=== PATIENT | female | born 1995 | race Caucasian/White ===

== ENCOUNTER 2016-11-30 18:05 | Emergency (ER) | payer SELFPAY ==
[2016-11-30] MEDS ORDERED: ONDANSETRON 4 MG TAB.RAPDIS PO ONE (19:00)
[2016-11-30] MEDS ORDERED: OXYCODONE-ACETAMINOPHEN 5-325 MG TABLET PO ONE (19:00)
[2016-11-30 19:46] LABS: ABSOLUTE LYMPHOCYTES (AUTO) 1.1 10^3/uL (0.5-4.7); ABSOLUTE MONOCYTES (AUTO) 0.5 10^3/uL (0.1-1.4); BASOPHILS % (AUTO) 0.2 % (0-2); EOSINOPHILS % (AUTO) 0.4 % (0-6); HEMOGLOBIN 13.3 g/dL (12.0-15.5); HGB HCT DIFFERENCE 0.9; LYMPHOCYTES % (AUTO) 10.2 % (13-45); MEAN CORPUSCULAR HEMOGLOBIN 30.1 pg (27.0-33.4); MEAN CORPUSCULAR HGB CONC 34.1 g/dL (32.0-36.0); MEAN CORPUSCULAR VOLUME 88 fl (80-97); RED BLOOD COUNT 4.42 10^6/uL (3.72-5.28); RED CELL DISTRIBUTION WIDTH 13.2 % (11.5-14.0); SEGMENTED NEUTROPHILS % (AUTO) 84.2 % (42-78); WHITE BLOOD COUNT 10.7 10^3/uL (4.0-10.5)
[2016-11-30 19:58] LABS: ALANINE AMINOTRANSFERASE 52 U/L (9-52); ALBUMIN 4.8 g/dL (3.5-5.0); ALKALINE PHOSPHATASE 85 U/L (38-126); ANION GAP 15 (5-19); ASPARTATE AMINO TRANSFERASE 27 U/L (14-36); BILIRUBIN,DIRECT 0.3 mg/dL (0.0-0.4); BILIRUBIN,TOTAL 0.6 mg/dL (0.2-1.3); BLOOD UREA NITROGEN 14 mg/dL (7-20); CALCIUM 9.5 mg/dL (8.4-10.2); CARBON DIOXIDE 22 mmol/L (22-30); CHLORIDE 103 mmol/L (98-107); CREATININE RESULT 0.59 mg/dL (0.52-1.25); GLUCOSE 81 mg/dL (75-110); LIPASE 46.3 U/L (23-300); POTASSIUM 4.2 mmol/L (3.6-5.0); SODIUM 139.5 mmol/L (137-145); TOTAL PROTEIN 8.1 g/dL (6.3-8.2)
--- NOTE | 2016-11-30 20:09 | RADIOLOGY REPORT (SQ) ---
EXAM DESCRIPTION: U/S ABDOMEN LTD W/DOPPLER COMPLETED DATE/TIME: 11/30/2016 7:58 pm REASON FOR STUDY: RUQ pain COMPARISON: None. TECHNIQUE: Dynamic and static grayscale images acquired of the abdomen and recorded on PACS. Additio nal selected color Doppler and spectral images recorded. LIMITATIONS: None. FINDINGS: PANCREAS: Not visualized. LIVER: No focal masses fatty liver. LIVER VASCULATURE: Normal directional flow of the main portal vein and hepatic veins. GALLBLADDER: No stones. Normal wall thickness. No pericholecystic fluid. ULTRASOUND-DETECTED PURI'S SIGN: Negative. INTRAHEPATIC DUCTS AND COMMON DUCT: CBD and intrahepatic ducts normal caliber. No filling defects. INFERIOR VENA CAVA: Normal flow. AORTA: No aneurysm. RIGHT KIDNEY: Normal size. Normal echogenicity. No solid or suspicious masses. No hydronephrosis. No calcifications. Cyst. PERITONEAL AND RIGHT PLEURAL SPACE: No ascites or effusions. OTHER: No other significant findings. IMPRESSION: Fatty liver. No gallstones. TECHNICAL DOCUMENTATION: JOB ID: [id number] [employer]- All Rights Reserved
[2016-11-30 20:28] LABS: APPEARANCE,URINE CLEAR; BILIRUBIN,URINE NEGATIVE (NEGATIVE); GLUCOSE, URINE NEGATIVE (NEGATIVE); KETONES,URINE TRACE mg/dL (NEGATIVE); LEUKOCYTE ESTERASE,URINE NEGATIVE (NEGATIVE); NITRITE,URINE NEGATIVE (NEGATIVE); PROTEIN,URINE NEGATIVE (NEGATIVE); URINE SPECIFIC GRAVITY 1.014; UROBILINOGEN,URINE NEGATIVE mg/dL (<2.0)
--- NOTE | 2016-11-30 20:43 | ER Document Report ---
ED General - General Chief Complaint: Hand Pain Stated Complaint: LEFT HAND PAIN, NAUSEA Time Seen by Provider: 11/30/16 18:14 Notes: Patient is a 21-year-old female presents emergency department complaining of left hand pain as well as nausea and vomiting. Patient's primary concern today is her nausea. Patient states that the past 2 days she has had right upper quadrant pain that was coming on describes a cramping sensation with radiation to her right shoulder. She states this is not associated with food. Patient states that she has had associated nausea and vomiting today and that her abdominal pain has subsided after she threw up only to come back. Patient denies any fever, chills, diarrhea or constipation. Patient's other complaint that brought her to the emergency department for referral for hand surgeon. Patient states that she broke her fifth metacarpal on Saturday and would like a second opinion by a hand surgeon. Otherwise she states that she is taking her pain medication as prescribed. TRAVEL OUTSIDE OF THE [place] IN LAST 30 DAYS: No - Related Data Allergies/Adverse Reactions: No Known Allergies Allergy (Verified 03/21/13 23:33) Home Medications: Current Home Medications Hydrocodone Bit/Acetaminophen [Vicodin 5-500 mg Tablet] 1 tab PO ASDIR PRN 11/30 [History] Ibuprofen [Motrin 800 mg Tablet] 800 mg PO Q8H PRN 11/30/16 [History] Past Medical History - Social History Smoking Status: Never Smoker Frequency of alcohol use: None Drug Abuse: None Family History: Reviewed & Not Pertinent Renal/ Medical History: Denies: Hx Peritoneal Dialysis Surgical Hx: Negative - Immunizations Immunizations up to date: Yes Hx Diphtheria, Pertussis, Tetanus Vaccination: Yes Review of Systems - Review of Systems Constitutional: No symptoms reported Gastrointestinal: See HPI Musculoskeletal: See HPI -: Yes All other systems reviewed and negative Physical Exam - Vital signs Vitals: Temp Pulse Resp BP Pulse Ox 97.5 F 82 18 142/94 H 100 11/30/16 18:09 11/30/16 18:09 11/30/16 18:11/30/16 18:11/30/16 18:09 - Notes Notes: PHYSICAL EXAM GENERAL: Alert, interacts well. NECK: Full range of motion. Supple. Trachea midline. LUNGS: Clear to auscultation bilaterally, no wheezes, rales, or rhonchi. No respiratory distress. HEART: Regular rate and rhythm. No murmurs, gallops, or rubs. ABDOMEN: Soft, nondistended, nontender. Right upper quadrant tenderness positive Peters sign. No guarding, rebound, or rigidity.. Bowel sounds present in all 4 quadrants. EXTREMITIES: Moves all extremities spontaneously left hand in a splint with neurovascular intact. No edema, radial and dorsalis pedis pulses 2/4 bilaterally. No cyanosis. NEUROLOGICAL: Alert and oriented x4. Normal speech. PSYCH: Normal affect, normal mood. SKIN: Warm, dry, normal turgor. No rashes or lesions noted. Course - Re-evaluation Re-evalutation: 11/30/16 21:35 Patient is a 21-year-old female who is hemodynamic stable, no acute distress and afebrile. Labs came back within normal limits and no concerns for leukocytosis, anemia, electrolyte abnormalities, abnormality and function for liver, pancreas or kidneys. Findings on ultrasound showed fatty liver. Discussed results with patient the bedside. Have provided a referral to Dr. Andrews. Patient is stable for discharge. After performing a Medical Screening Examination, I estimate there is LOW risk for ACUTE APPENDICITIS, BOWEL OBSTRUCTION, ACUTE CHOLECYSTITIS, PERFORATED DIVERTICULITIS, INCARCERATED HERNIA, PANCREATITIS, PELVIC INFLAMMATORY DISEASE, PERFORATED ULCER, ECTOPIC , or TUBO-OVARIAN ABSCESS, thus I consider the discharge disposition reasonable. Also, there is no evidence or peritonitis , sepsis, or toxicity. I have reevaluated this patient multiple times and no significant life threatening changes are noted. The patient and I have discussed the diagnosis and risks, and we agree with discharging home with close follow-up with the understanding that symptoms and presentations can change. We also discussed returning to the Emergency Department immediately if new or worsening symptoms occur. We have discussed the symptoms which are most concerning (e.g., bloody stool, fever, changing or worsening pain, vomiting) that necessitate immediate return. - Vital Signs Vital signs: Temp Pulse Resp BP Pulse Ox 98.5 F 70 18 116/69 100 11/30/16 20:53 11/30/16 20:53 11/30/16 20:53 11/30/16 20:53 11/30/16 20:53 - Laboratory Result Diagrams: 11/30/16 19:33 11/30/16 19:33 Laboratory results interpreted by me: 11/30/16 11/30/16 19:33 20:05 WBC 10.7 H Seg Neutrophils % 84.2 H Lymphocytes % 10.2 L Absolute Neutrophils 9.0 H Urine Ketones TRACE H - Diagnostic Test Radiology reviewed: Reports reviewed Discharge - Discharge Clinical Impression: Nausea Closed fracture of 3rd metacarpal Qualifiers: Encounter type: initial encounter Metacarpal location: shaft Fracture alignment : nondisplaced Laterality: left Qualified Code(s): S62.353A - Nondisplaced fracture of shaft of third metacarpal bone, left hand, initial encounter for closed fracture Condition: Good Disposition: HOME, SELF-CARE Instructions: Fractured Metacarpal ([facility]) Additional Instructions: ABDOMINAL PAIN: There are many causes of abdominal pain. Pain can mean a serious problem requiring surgery (such as appendicitis). It can also be an innocent problem that goes away on its own (such as a viral infection). Often, time must pass to determine the cause of pain. The physician does not feel that hospitalization is necessary, at present. Things may change within the next 24 hours. Call the doctor or come back for re- examination if any problems occur, such as: (1) Pain that becomes more severe, steady, or becomes concentrated in one specific area. Also, pain that is more severe with movement or coughing. (2) Vomiting that persists or becomes more frequent. (3) Blood in the vomitus, urine, or bowel movements. Blood in the stool may have a tarry or black appearance. (4) Shaking chills or fever greater than 100 degrees F. (5) The abdomen becomes more distended or swollen. (6) Bowel movements cease. (7) Failure to improve as expected. NORMAL EXAM AND WORKUP: At this time, your examination and workup show no significant abnormality. No significant abnormal physical findings are noted. All laboratory, EKG, and imaging (x-ray, CT scans, ultrasound) studies that were ordered show no significant abnormality. Although your examination and all studies that were ordered showed no significant abnormal finding, there are no examinations and no studies that are 100% accurate. There is always the possibility that some abnormality could exist and not be detected with physical examination or within the limits and capabilities of laboratory and other studies. You should return or follow up as you were instructed on your visit today for further evaluation if your symptoms do not resolve. FOLLOW-UP CARE: If you have been referred to a physician for follow-up care, call the physician s office for an appointment as you were instructed or within the next two days. If you experience worsening or a significant change in your symptoms, notify the physician immediately or return to the Emergency Department at any time for re-evaluation. Prescriptions: Ondansetron [Zofran Odt 4 mg Tablet] 1 - 2 tab PO Q4H PRN #15 tab.rapdis PRN Reason: For Nausea/Vomiting Promethazine HCl [Phenergan 25 mg Tablet] 25 - 50 mg PO ASDIR PRN #12 tablet PRN Reason: Referrals: NICOLE ANDREWS DO [ACTIVE STAFF] - Follow up in 3-5 days
[2016-11-30 20:54] VITALS: BP 116/69
== END 2016-11-30 20:56 | disposition home or self-care (01) ==
LOC: ER 18:05
DX: S62.353A Nondisplaced fracture of shaft of third metacarpal bone, left hand, initial encounter for closed fracture (principal); M79.642 Pain in left hand; R11.0 Nausea; R10.11 Right upper quadrant pain; Z79.899 Other long term (current) drug therapy; X58.XXXA Exposure to other specified factors, initial encounter
CPT/HCPCS: 99284; 36415; 83690; 84703; 85025; 80053; 81001; 76705; 93976; S0119

== ENCOUNTER 2019-04-21 20:47 | Emergency (ER) | payer SELFPAY ==
--- NOTE | 2019-04-21 21:16 | EKG REPORT ---
SEVERITY:- NORMAL ECG - SINUS RHYTHM : Confirmed by: Berto Johnson MD 21-Apr-2019 21:15:57
--- NOTE | 2019-04-21 21:16 | ER Document Report ---
ED Medical Screen (RME) - General Chief Complaint: General Weakness Stated Complaint: FLU SYMPTOMS/HIGH HEART RATE/WEAK Time Seen by Provider: 04/21/19 21:11 Mode of Arrival: Wheelchair Information source: Patient Notes: 23-year-old female presents emergency department with complaints of cough feeling weak. Reports she was diagnosed with the flu yesterday at [facility]. She reports she has had her symptoms for the past 2 weeks. She reports she was at the store when she came weak and almost passed out. Her mother caught her. She did not fall she did not hit her head. She denies vomiting diarrhea. Reports she is not eating that much. Reports fever this morning took ibuprofen a couple hours ago. Denies . Reports she has been sexually active in a long long time. Reports her chest hurt, feels it was pounding. I have greeted and performed a rapid initial assessment of this patient. A comprehensive ED assessment and evaluation of the patient, analysis of test results and completion of the medical decision making process will be conducted by additional ED providers. TRAVEL OUTSIDE OF THE [place] IN LAST 30 DAYS: No - Related Data Allergies/Adverse Reactions: No Known Allergies Allergy (Verified 03/21/13 23:33) Home Medications: BCP Past Medical History Renal/ Medical History: Denies: Hx Peritoneal Dialysis - Immunizations Immunizations up to date: Yes Hx Diphtheria, Pertussis, Tetanus Vaccination: Yes Physical Exam - Vital signs Vitals: Temp Pulse Resp BP Pulse Ox 98 F 101 H 16 137/96 H 96 04/21/19 21:07 04/21/19 21:07 04/21/19 21:07 04/21/19 21:07 04/21/19 21:07 Course - Vital Signs Vital signs: Temp Pulse Resp BP Pulse Ox 98 F 101 H 16 137/96 H 96 04/21/19 21:07 04/21/19 21:07 04/21/19 21:07 04/21/19 21:07 04/21/19 21:07
--- NOTE | 2019-04-21 21:54 | RADIOLOGY REPORT (SQ) ---
EXAM DESCRIPTION: XR CHEST 2 VIEWS COMPLETED DATE/TME: 04/21/2019 21:14 CLINICAL HISTORY: 23 years, Female, cough cp COMPARISON: None. NUMBER OF VIEWS: Two TECHNIQUE: Frontal and lateral radiographs were obtained LIMITATIONS: None. FINDINGS: Cardiac and mediastinal contours are normal in appearance. Lungs are clear. No pleural effusion or pneumothorax. IMPRESSION: No acute disease. copyright 2010 [employer]- All Rights Reserved
--- NOTE | 2019-04-22 04:36 | ER Document Report ---
ED General - General Chief Complaint: General Weakness Stated Complaint: FLU SYMPTOMS/HIGH HEART RATE/WEAK Time Seen by Provider: 04/21/19 21:11 Mode of Arrival: Wheelchair TRAVEL OUTSIDE OF THE [place] IN LAST 30 DAYS: No - Related Data Allergies/Adverse Reactions: No Known Allergies Allergy (Verified 03/21/13 23:33) Home Medications: BCP Past Medical History - General Information source: Patient - Social History Smoking Status: Never Smoker Family History: Reviewed & Not Pertinent Patient has suicidal ideation: No Patient has homicidal ideation: No Renal/ Medical History: Denies: Hx Peritoneal Dialysis - Immunizations Immunizations up to date: Yes Hx Diphtheria, Pertussis, Tetanus Vaccination: Yes Physical Exam - Vital signs Vitals: Temp Pulse Resp BP Pulse Ox 98 F 101 H 16 137/96 H 96 04/21/19 21:07 04/21/19 21:07 04/21/19 21:07 04/21/19 21:07 04/21/19 21:07 - Notes Notes: Presents emergency department complaining of generalized weakness and a rapid heart rate that started this afternoon. She has a heart rate has improved. She does report that she has had a fever for the past several days associated with some URI symptoms sore throat nonproductive cough chest pain mild shortness of breath occasional nausea vomiting and occasional crampy abdominal pain said her appetite is been decreased has not thrown up in several hours however. Does appetite has been decreased. The chest pain is substernal stabbing increases with coughing and breathing. She denies large ingestions of cough coffee caffeine and sodas or energy drinks. Says she was seen by family doctor couple days ago diagnosed with the flu they did not start her on [id number] been sick for several days His medical history is unremarkable. Social history does not smoke or drink at all. LMP was 2 weeks ago. Review of systems pertinent positives and negatives in HPI otherwise all the systems were reviewed and acutely negative E1 PHYSICIAN EXAM -vital signs are noted triage note and note from triage reviewed GENERAL: Well-appearing, well-nourished and in _no acute distress HEAD: Atraumatic, normocephalic. EYES: Pupils equal round and reactive to light, extraocular movements intact, sclera anicteric, conjunctiva are normal. ENT: nares patent, oropharynx clear without exudates. Moist mucous membranes. NECK: supple without lymphadenopathy no meningeal signs LUNGS: Breath sounds clear to auscultation bilaterally and equal. No wheezes rales or rhonchi. HEART: Regular rate and rhythm without murmurs of 70 on my exam ABDOMEN: Soft, nontender, normoactive bowel sounds. EXTREMITIES: No deformity, no edema. NEUROLOGICAL: Alert and oriented x4. Cranial nerves he has symmetrical smile facies and shoulder shrug. His motor strength is 5/5 bilaterally in the upper and lower extremities. Toes downgoing. Sensation is intact to light touch is a negative Romberg and normal gait PSYCH: Normal mood, normal affect. SKIN: Warm, Dry, normal turgor, no rashes or lesions noted. BACK-nontender in the midline Course - Re-evaluation Re-evalutation: 04/22/19 04:34 Medical decision making patient presents with some generalized weakness what sounds like viral syndrome type symptoms she is not dehydrated she is tolerating liquids well here. Looks well can be discharged home I see no indication for additional testing. At this time there is no indication for admission. I have discussed the findings with patient/family with return precautions and follow-up recommendations. Verbal discharge instructions given at the bedside and opportunity for questions given. Medication warnings were given if indicated. Patient is in agreement with this plan and has verbalized understanding of return precautions and the need for primary care follow-up as directed.. - Vital Signs Vital signs: Temp Pulse Resp BP Pulse Ox 97.9 F 77 16 124/82 100 04/22/19 01:01 04/22/19 01:01 04/21/19 21:07 04/22/19 01:01 04/22/19 01:01 - Diagnostic Test Radiology reviewed: Reports reviewed - EKG Interpretation by Me Additional EKG results interpreted by me: 04/22/19 04:34 EKG read by me shows a normal sinus rhythm with a rate of 94 with a normal axis and QRS. Discharge - Discharge Clinical Impression: Viral syndrome Nausea and vomiting Qualifiers: Vomiting Intractability: unspecified Disposition: HOME, SELF-CARE Instructions: Viral Syndrome ([facility]), Vomiting ([facility]) Additional Instructions: Please review the discharge instructions, they will tell you about your disease/injury and what you need to return to the ED for Return to the ED if you feel worse or can follow-up with your family doctor Drink plenty of fluids. Stay on a bland diet avoiding fatty greasy foods Take Tylenol every 4 hours for pain or fever Follow-up with your family doctor in 3 to 5 days if not better Your blood pressure was elevated today needs to be rechecked again in 1 to 2 weeks to determine if need to be on medication or have your medications adjusted. Untreated hypertension can cause heart attack stroke and kidney failure Prescriptions: Ondansetron HCl [Zofran 4 mg Tablet] 1 tab PO Q4H PRN #12 tablet PRN Reason: Forms: Elevated Blood Pressure
[2019-04-22] MEDS ORDERED: ONDANSETRON ODT 4 MG TAB (6 TAB/ER DISP) PO PRN (04:37)
[2019-04-22 05:51] VITALS: BP 107/84
== END 2019-04-22 05:46 | disposition home or self-care (01) ==
LOC: ER 20:47
DX: B34.9 Viral infection, unspecified (principal); R11.2 Nausea with vomiting, unspecified; R53.1 Weakness; R00.2 Palpitations; R50.9 Fever, unspecified; R07.9 Chest pain, unspecified
CPT/HCPCS: 71046; 82962; 93005; 93010; 99285